=== PATIENT | male | born 1995 | race African-American/Black ===

== ENCOUNTER 2022-09-12 01:08 | Emergency (ER) | payer MEDICAID, OTHER ==
[~2022-09-12] VITALS: Ht 177.8 cm; Wt 80.5 kg
[2022-09-12 01:40] VITALS: BP 132/83; O2SAT 98
[2022-09-12 02:21] LABS: CLARITY URINE CLEAR (CLEAR); COLOR URINE YELLOW (YELLOW); KETONES URINE NEGATIVE (NEGATIVE); LEUKOCYTE ESTERASE URINE 1+ (NEGATIVE); NITRITE URINE NEGATIVE (NEGATIVE); OCCULT BLOOD URINE NEGATIVE (NEGATIVE); PROTEIN URINE 1+ (NEGATIVE); SPECIFIC GRAVITY URINE 1.019 (1.005-1.030)
[2022-09-12] MEDS ORDERED: CEFTRIAXONE SODIUM 500 MG/VIAL IM ONE (03:15)
[2022-09-12] MEDS ORDERED: LIDOCAINE HCL/PF 1% 10 MG/ML 5ML VIAL INFIL ONE (03:15)
[2022-09-12] MEDS ORDERED: DOXY100T2 MT (04:08)
[2022-09-12] MEDS ORDERED: PHEN95TA44 MT (04:12)
[2022-09-12 04:20] VITALS: PULSE 71; TEMP 97.9
[2022-09-15 13:12] LABS: NEISSERIA GONORRHOEAE NAA Negative (Negative)
== END 2022-09-12 04:29 | disposition home or self-care (01) ==
LOC: ER 01:08
DX: R30.9 Painful micturition, unspecified (principal)
CPT/HCPCS: 87491; 87591; 81003; 96372; 99283; J0696; J3490; Z7610

== ENCOUNTER 2022-10-11 11:30 | Emergency (ER) | payer MEDICAID, OTHER ==
[~2022-10-11] VITALS: Ht 177.8 cm; Wt 79.0 kg
[~2022-10-11 11:30] MED LIST: DOXY100T2 MT; PHEN95TA44 MT
[2022-10-11 12:00] VITALS: O2SAT 98
[2022-10-11 15:43] VITALS: BP 120/87; PULSE 78; RESP 18; TEMP 98.2
== END 2022-10-11 15:45 | disposition home or self-care (01) ==
LOC: ER 11:30
DX: R05.9 Cough, unspecified (principal)
CPT/HCPCS: 71045; 99283

== ENCOUNTER 2023-01-13 14:41 | Emergency (ER) | payer MEDICAID ==
[~2023-01-13] VITALS: Ht 177.8 cm; Wt 79.0 kg
[2023-01-13 15:29] VITALS: BP 110/66; PULSE 109; RESP 18; TEMP 98.2; O2SAT 100
== END 2023-01-13 16:00 | disposition left against medical advice (07) ==
LOC: ER 15:04
DX: R05.9 Cough, unspecified (principal); Z53.21 Procedure and treatment not carried out due to patient leaving prior to being seen by health care provider
CPT/HCPCS: 99281

== ENCOUNTER 2023-02-06 15:33 | Emergency (ER) | payer MEDICAID, OTHER ==
[~2023-02-06] VITALS: Ht 177.8 cm; Wt 77.0 kg
[2023-02-06 15:38] VITALS: BP 125/74; TEMP 98.5; O2SAT 100
[2023-02-06 15:46] VITALS: PULSE 61; RESP 15
[2023-02-06] MEDS ORDERED: BENZ200C52 MT (17:06)
== END 2023-02-06 18:52 | disposition home or self-care (01) ==
LOC: ER 15:33
DX: R05.3 Chronic cough (principal)
CPT/HCPCS: 71045; 99283